=== PATIENT | male | born 1975 | race Caucasian/White ===

== ENCOUNTER 2022-08-31 12:37 | Emergency (ER) | payer MEDICAID ==
[2022-08-31] MEDS ORDERED: Diphtheria,Pertussis(Acell),Tetanus Vaccine 0.5 ML SDV IM ONE (13:32)
[2022-09-01] MEDS ORDERED: Lidocaine 1% 30 ML SDV INJECT ONE (09:52)
== END 2022-08-31 13:50 | disposition home or self-care (01) ==
LOC: LB.ED 12:37
DX: S60.453A Superficial foreign body of left middle finger, initial encounter (principal); Z23 Encounter for immunization; W45.8XXA Other foreign body or object entering through skin, initial encounter
CPT/HCPCS: 90471; 90715; 99281; 99282

== ENCOUNTER 2024-10-11 10:08 | Emergency (ER) | payer SELFPAY ==
[2024-10-11 11:12] LABS: INFLUENZA A NAA POSITIVE (NEGATIVE); INFLUENZA B NAA NEGATIVE (NEGATIVE); RESPIRATORY SYNCYTIAL VIR NAA NEGATIVE (NEGATIVE)
[2024-10-11 11:19] LABS: CORONAVIRUS COVID-19 NAA NEGATIVE (NEGATIVE)
== END 2024-10-11 11:45 | disposition home or self-care (01) ==
LOC: LB.ED 10:08
DX: J10.1 Influenza due to other identified influenza virus with other respiratory manifestations (principal)
CPT/HCPCS: 0241U; 71045; 99283